=== PATIENT | female | born 1980 | race Asian ===

== ENCOUNTER 2018-08-22 03:39 | Emergency (ER) | payer OTHER ==
[~2018-08-22] VITALS: Ht 162.6 cm; Wt 53.5 kg
--- NOTE | 2018-08-22 03:58 | NUR ---
ED Nurse Note: pt walked in c/o left lateral back pain started since yesterday afternoon, progressively worsen. pt denies any recent injuries, denies pain on urination, denies n/v/d. pt AA&ox4, gcs=15, skin warm and dry, resp even and unlabored on RA, -n/v/d, ambulates w/ steady gait, will cont monitor.
[2018-08-22 04:00] VITALS: BP 119/72
[2018-08-22] MEDS ORDERED: Ketorolac 30mg Inj IV ONE (04:00)
--- NOTE | 2018-08-22 04:02 | Emergency Room Report ---
History of Present Illness General Chief Complaint: Back Pain-No Injury Source: Patient Present Illness [facility] This is a 38-year-old female with no past medical history. She presents with chief of left flank pain. Onset yesterday. No heavy lifting. No trauma. Pain is sharp in nature. 8 out of 10. No fever chills but no nausea no vomiting. Denies any other complaint. Movement makes it worse. No dysuria or hematuria. Allergies: Coded Allergies: CIPROFLOXACIN (Verified Allergy, Unknown, 08/22/18) FENOPROFEN (Verified Allergy, Unknown, 08/22/18) Patient History Past Medical History: none, see triage record, old chart reviewed Past Surgical History: none Pertinent Family History: none Social History: Denies: smoking Last Menstrual Period: Aug 07 2018 Now: No Immunizations: other Reviewed Nursing Documentation: PMH: Agreed; PSxH: Agreed Nursing Documentation-PMH Past Medical History: No Stated History Review of Systems Eye: Denies: eye pain, blurred vision ENT: Denies: ear pain, nose congestion, throat swelling Respiratory: Denies: cough, shortness of breath Cardiovascular: Denies: chest pain, palpitations Gastrointestinal: Reports: abdominal pain; Denies: diarrhea, nausea, vomiting Musculoskeletal: Denies: back pain, joint pain Skin: Denies: rash Neurological: Denies: headache, numbness Endocrine: Denies: increased thirst, increased urine Hematologic/Lymphatic: Denies: easy bruising All Other Systems: negative except mentioned in HPI Physical Exam Vital Signs Date Time Temp Pulse Resp B/P (MAP) Pulse Ox O2 Delivery O2 Flow Rate FiO2 08/22/18 03:44 97.9 73 18 119/72 98 Room Air vitals normal Sp02 EP Interpretation: reviewed, normal General Appearance: well appearing, no apparent distress, alert Head: normocephalic, atraumatic Eyes: bilateral eye PERRL, bilateral eye EOMI ENT: hearing grossly normal, normal pharynx Neck: full range of motion, supple, no meningismus Respiratory: chest non-tender, lungs clear, normal breath sounds Cardiovascular #1: regular rate, rhythm, no murmur Gastrointestinal: normal bowel sounds, non tender, no mass, no organomegaly, no bruit, non-distended Musculoskeletal: back normal, gait/station normal, normal range of motion Psychiatric: mood/affect normal Skin: warm/dry Medical Decision Making Diagnostic Impression: Primary Impression: Back pain Qualified Codes: M54.5 - Low back pain ER Course Patient presents with back pain. Most likely musculoskeletal in nature. No evidence of kidney stone. No evidence of infection, pyelonephritis, UTI. No evidence of dissection. Pain is better. We'll discharge home. No adverse reaction to Toradol. Lab Results Impression labs normal CT/MRI/US Diagnostic Results CT/MRI/US Diagnostic Results : Imaging Test Ordered: CT abdomen and pelvis Impression negative per radiologist Last Vital Signs Date Time Temp Pulse Resp B/P (MAP) Pulse Ox O2 Delivery O2 Flow Rate FiO2 08/22/18 03:44 97.9 73 18 119/72 98 Room Air Status: improved Disposition: HOME, SELF-CARE Condition: Stable Scripts Ibuprofen* (MOTRIN*) 600 Mg Tablet 600 MG ORAL THREE TIMES A DAY, #30 TAB 0 Refills Prov: Kris Mosquera MD 08/22/18 Patient Instructions: Back Pain, Adult Additional Instructions: Follow-up with your doctor in 7 days. Return if worse. Kris Mosquera MD Aug 22, 2018 04:02
[2018-08-22 04:14] LABS: BASOPHILS % (AUTO) 0.9 % (0.0-2.0); EOSINOPHILS % (AUTO) 2.5 % (0.0-3.0); HEMATOCRIT 43.8 % (37.0-47.0); HEMOGLOBIN 14.6 G/DL (12.0-16.0); LYMPHOCYTES % (AUTO) 22.2 % (20.0-45.0); MEAN CORPUSCULAR VOLUME 85 FL (80-99); NEUTROPHILS % (AUTO) 68.5 % (45.0-75.0); PLATELET COUNT 173 K/UL (150-450); RED BLOOD COUNT 5.16 M/UL (4.20-5.40); RED CELL DISTRIBUTION WIDTH 11.3 % (11.6-14.8); WHITE BLOOD COUNT 8.5 K/UL (4.8-10.8)
[2018-08-22 04:15] LABS: APPEARANCE,URINE CLEAR; BILIRUBIN, URINE NEGATIVE (NEGATIVE); COLOR,URINE PALE YELLOW; GLUCOSE, URINE (UA) NEGATIVE (NEGATIVE); KETONES,URINE NEGATIVE (NEGATIVE); LEUKOCYTE ESTERASE ,URINE 1+ (NEGATIVE); NITRITE,URINE NEGATIVE (NEGATIVE); PH,URINE 5 (4.5-8.0); PROTEIN,URINE NEGATIVE (NEGATIVE); UROBILINOGEN,URINE NORMAL MG/DL (0.0-1.0)
[2018-08-22 04:26] LABS: ANION GAP 9 mmol/L (5-15); BLOOD UREA NITROGEN 13 mg/dL (7-18); CARBON DIOXIDE 27 MMOL/L (21-32); CHLORIDE 102 MMOL/L (98-107); CREATININE 0.8 MG/DL (0.55-1.30); POTASSIUM 3.9 MMOL/L (3.5-5.1); SODIUM 138 MMOL/L (136-145)
--- NOTE | 2018-08-22 04:40 | NUR ---
ED Nurse Note: pt back from CT. extra warm blanket provided for comfort.
--- NOTE | 2018-08-22 04:48 | Diagnostic Imaging Report ---
EXAM: CT Abdomen and Pelvis Without Intravenous Contrast CLINICAL HISTORY: ABD PAIN TECHNIQUE: Axial computed tomography images of the abdomen and pelvis without intravenous contrast. CTDI is 11.81 mGy and DLP is 600 mGy-cm. One or more of the following dose reduction techniques were used: automated exposure control, adjustment of the mA and/or kV according to patient size, use of iterative reconstruction technique. COMPARISON: None FINDINGS: Limitations: Absent IV and oral contrast limit evaluation. Lung bases: Small faint nodules in the visualized left lower lobe measuring 4-5 millimeter, nonspecific. Follow up based on risk factors and Fleischner's criteria. ABDOMEN: Liver: Unremarkable. Gallbladder and bile ducts: Unremarkable. No calcified stones. No ductal dilation. Pancreas: Unremarkable. No ductal dilation. Spleen: Unremarkable. No splenomegaly. Adrenals: Unremarkable. No mass. Kidneys and ureters: No renal calcification. No hydronephrosis. Stomach and bowel: Nonspecific bowel gas pattern with moderate retained stool. No obstruction. No mucosal thickening. PELVIS: Appendix: Appendix not well-visualized. No secondary signs of acute appendicitis. Bladder: Decompressed bladder. No stones. Reproductive: Probable adnexal cysts. ABDOMEN and PELVIS: Intraperitoneal space: No significant free fluid. No free air. Bones/joints: No acute fracture. No dislocation. Soft tissues: Unremarkable. Vasculature: Unremarkable. No abdominal aortic aneurysm. Lymph nodes: Unremarkable. No enlarged lymph nodes. IMPRESSION: No renal or ureteral calculus. Nonspecific bowel gas pattern with moderate retained stool. Tiny nonspecific nodules in the visualized left lower lobe. Follow up based on risk factors and Fleischner's criteria
[2018-08-22] MEDS ORDERED: IBUPROFEN600 MG ORAL (05:03)
[2018-08-22 05:14] VITALS: BP 111/70
--- NOTE | 2018-08-22 05:15 | NUR ---
ED Nurse Note: pt cleared to be d/c per ERMD, pt discharge and aftercare instruction provided w/ prescription, pt education done via discussion and handout, pt advised to follow up with pcp or return to ed if sx worsen or new sx develop, pt verbalized understanding and agrees with plan, vss, ambulatory w/ steady gait, left w/ all belongings.
== END 2018-08-22 05:16 | disposition home or self-care (01) ==
LOC: EMR 03:50
DX: M54.5 Low back pain (principal); R10.9 Unspecified abdominal pain; Z88.1 Allergy status to other antibiotic agents; Z88.8 Allergy status to other drugs, medicaments and biological substances
CPT/HCPCS: 36415; 74176; 80048; 81003; 81025; 85025; 96374; 99284; J1885